=== PATIENT | female | born 1995 | race Caucasian/White ===

== ENCOUNTER 2017-04-23 16:44 | Emergency (ER) | payer MEDICAID ==
[~2017-04-23] VITALS: Ht 162.6 cm; Wt 50.5 kg
[2017-04-23 16:49] VITALS: BP 105/67
[2017-04-23] MEDS ORDERED: IBUPROFEN 200 MG TABLET ONE (17:28)
[2017-04-23] MEDS ORDERED: IBUPROFEN 200 MG TABLET PO ONE (17:30)
== END 2017-04-23 17:39 | disposition home or self-care (01) ==
LOC: ED 17:33
DX: L03.211 Cellulitis of face (principal)
CPT/HCPCS: 99283

== ENCOUNTER 2018-07-04 14:38 | Emergency (ER) | payer MEDICAID ==
[~2018-07-04] VITALS: Ht 162.6 cm; Wt 54.0 kg
[2018-07-04 15:21] LABS: BASOPHILS # (AUTO) 0.04 x10^3/uL (0-0.3); BASOPHILS % (AUTO) 1 % (0-1); EOSINOPHILS # (AUTO) 0.44 x10^3/uL (0-0.8); EOSINOPHILS % (AUTO) 6 % (1-7); LYMPHOCYTES # (AUTO) 2.72 x10^3/uL (1-6.1); LYMPHOCYTES % (AUTO) 40 % (22-44); MD NO; MEAN CORPUSCULAR HEMOGLOBIN 28.5 pg (27.0-34.8); MEAN PLATELET VOLUME 9.3 fL (7.4-10.4); MONOCYTES # (AUTO) 0.54 x10^3/uL (0-1.4); MONOCYTES % (AUTO) 8 % (2-9); NEUTROPHILS # (AUTO) 3.13 x10^3/uL (1.8-8.0); NEUTROPHILS % (AUTO) 46 % (42-75); PLATELET COUNT 247 x10^3/uL (130-400); RED BLOOD COUNT 5.46 x10^6/uL (3.82-5.3); RED CELL DISTRIBUTION WIDTH 12.7 % (9.6-15.2)
[2018-07-04 15:28] LABS: ALBUMIN 3.8 g/dL (3.4-5.0); ANION GAP 5 mmol/L (5-15); CALCIUM 8.8 mg/dL (8.5-10.1); CHLORIDE 106 mmol/L (98-107)
[2018-07-04 15:34] LABS: ALANINE AMINOTRANSFERASE 17 U/L (12-78); ALKALINE PHOSPHATASE 92 U/L (45-117); BILIRUBIN,TOTAL 0.8 mg/dL (0.2-1.0); CREATININE 0.79 mg/dL (0.55-1.02); TOTAL PROTEIN 7.6 g/dL (6.4-8.2)
[2018-07-04 16:53] LABS: MICROSCOPIC AUTO
[2018-07-04 16:58] LABS: CULTURE INDICATED? YES
[2018-07-04 17:40] VITALS: BP 96/62
== END 2018-07-04 17:45 | disposition home or self-care (01) ==
LOC: ED 17:39
DX: N93.8 Other specified abnormal uterine and vaginal bleeding (principal)
CPT/HCPCS: 36415; 76830; 80053; 81001; 84703; 85025; 87086; 99285